=== PATIENT | male | born 1975 | race Caucasian/White ===

== ENCOUNTER 2020-09-03 23:04 | Observation (INO) ==
[2020-09-04] MEDS ORDERED: THIAMINE INJ 100 MG, FOLIC ACID INJ 1 MG, MAGNESIUM SULF INJ 2 GM, MULTIVITAMIN INJ 10 ... IV ONE (00:13)
[2020-09-04] MEDS ORDERED: LORazepam 2 MG/1 ML VIAL IV STA ×2 (00:13→02:50)
[2020-09-04] MEDS ORDERED: ONDANSETRON 4 MG/2 ML VIAL IV ONE (00:14)
[2020-09-04 00:35] LABS: Albumin 5.3 G/DL (3.4-5.0); Bilirubin,Total 1.4 MG/DL (0.20-1.00); Calcium 10.1 MG/DL (8.5-10.1); Osmolality,Calculated 273.1 MOS/KG (273-304); Potassium 4.1 MMOL/L (3.5-5.1); Total Protein 9.5 G/DL (6.4-8.2)
[2020-09-04 00:40] LABS: Basophils # 0.1 10*3/uL (0.0-0.2); Basophils % 0.5 % (0.0-0.8); Eosinophils % 0.1 % (0.00-10.9); Hematocrit 51.7 VOL% (42.0-52.0); Hemoglobin 17.7 GM/DL (14.0-18.0); Immature Granulocytes % 0.5 %; Immature Granulocytes Absolute 0.07 #; Lymphocytes # 1.9 10*3/uL (1.4-4.0); Lymphocytes % 12.1 % (21.2-54.2); Mean Corpuscular HGB Conc 34.2 GM/DL (32-36); Mean Corpuscular Volume 93.3 FL (87-102); Mean Platelet Volume 10.7 FL (9.6-12.0); Monocytes % 4.9 % (1.7-12.7); Neutrophils % 81.9 % (38.7-73.9); Platelet Count 223 T/CUMM (130-400); Red Blood Count 5.54 MC/CUMM (3.8-5.5); White Blood Count 15.3 T/CUMM (4-12)
[2020-09-04 00:47] LABS: Blood, Urine Small mg/dL (Negative); Glucose,Urine (UA) 50 mg/dL (Negative); Hyaline Casts,Urine 17 /LPF (0-3); Ketones,Urine 80 mg/dL (Negative); Mucus,Urine Moderate /LPF (Occasional); Nitrite,Urine Negative (Negative); Protein,Urine >=500 MG/DL; RBC,Urine 2 /HPF (0-4); Squamous Epithelial Cell,Urine Occasional /HPF (0-10); Urine Appearance CLEAR (Clear); Urine Specific Gravity 1.031 (1.001-1.035); Urine Urobilinogen < 2.0 EU/DL (0.2-1.0)
[2020-09-04 00:48] LABS: Bilirubin,Urine Small mg/dL (Negative); Urine Color Yellow (Yellow)
[2020-09-04 00:49] LABS: Barbiturates Screen,Urine Negative (Negative); Benzodiazepines Screen,Urine Negative (Negative); Cannabinoid Screen,Urine Negative (Negative); Opiate Screen,Urine Negative (Negative); Phencyclidine Screen,Urine Negative (Negative)
[2020-09-04] MEDS ORDERED: hydrALAZINE 20 MG/1 ML VIAL IV STA (01:52)
[2020-09-04] MEDS ORDERED: LABETALOL 20 MG/4 ML SYRINGE IV STA ×2 (02:50→03:21)
[2020-09-04] MEDS ORDERED: hydrALAZINE 20 MG/1 ML VIAL IV PRN (03:21)
[2020-09-04] MEDS ORDERED: DEXTROSE 50% 25 GM/50 ML VIAL IV PRN (03:21)
[2020-09-04] MEDS ORDERED: PROMETHAZINE 25 MG/1 ML VIAL IM PRN (03:21)
[2020-09-04] MEDS ORDERED: GLUCAGON 1 MG VIAL IM PRN (03:21)
[2020-09-04] MEDS ORDERED: diphenhydrAMINE CAP 25 MG CAPSULE PO PRN (03:21)
[2020-09-04] MEDS ORDERED: ONDANSETRON 4 MG/2 ML VIAL IV PRN (03:21)
[2020-09-04] MEDS ORDERED: NICOTINE 21 MG/24 HR PATCH TRANSDERM PRN (03:21)
[2020-09-04] MEDS: LORazepam 2 MG/1 ML VIAL IV PRN ×4 (05:57→20:38)
[2020-09-04] MEDS: SODIUM CHLORIDE 0.9% 1,000 ML IV SCH ×4 (06:03→20:39)
[2020-09-04 08:57] LABS: Albumin 4.1 G/DL (3.4-5.0); Bilirubin,Total 1.3 MG/DL (0.20-1.00); Calcium 8.4 MG/DL (8.5-10.1); Osmolality,Calculated 269.1 MOS/KG (273-304); Potassium 3.5 MMOL/L (3.5-5.1); Total Protein 7.8 G/DL (6.4-8.2)
[2020-09-04] MEDS: chlordiazePOXIDE 10 MG CAPSULE PO SCH (20:39)
[2020-09-05] MEDS: LORazepam 2 MG/1 ML VIAL IV PRN ×6 (00:11→20:46)
[2020-09-05] MEDS: SODIUM CHLORIDE 0.9% 1,000 ML IV SCH ×3 (04:50→21:08)
[2020-09-05 05:49] LABS: Basophils # 0.1 10*3/uL (0.0-0.2); Basophils % 0.5 % (0.0-0.8); Eosinophils # 0.1 10*3/uL (0.0-0.87); Eosinophils % 1.5 % (0.00-10.9); Hematocrit 40.5 VOL% (42.0-52.0); Immature Granulocytes % 0.2 %; Immature Granulocytes Absolute 0.02 #; Lymphocytes # 2.9 10*3/uL (1.4-4.0); Mean Corpuscular HGB Conc 34.6 GM/DL (32-36); Mean Corpuscular Volume 93.1 FL (87-102); Mean Platelet Volume 10.8 FL (9.6-12.0); Monocytes % 8.3 % (1.7-12.7); Neutrophils % 57.5 % (38.7-73.9); Red Cell Distribution Width 13.2 % (9.3-17.3)
[2020-09-05 05:51] LABS: Red Blood Count 4.35 MC/CUMM (3.8-5.5); White Blood Count 9.2 T/CUMM (4-12)
[2020-09-05 05:53] LABS: Platelet Count 113 T/CUMM (130-400)
[2020-09-05 06:13] LABS: Microcytosis 1+
[2020-09-05 06:14] LABS: Platelet Estimate Decreased
[2020-09-05] MEDS: chlordiazePOXIDE 10 MG CAPSULE PO SCH ×3 (08:44→20:45)
[2020-09-05] MEDS ORDERED: THIAMINE 100 MG TABLET PO SCH (09:00)
[2020-09-05] MEDS ORDERED: MULTIVITAMIN (BEROCCA) TABLET PO SCH (13:30)
[2020-09-05] MEDS: QUEtiapine 25 MG TABLET PO SCH ×2 (13:37→20:44)
[2020-09-05] MEDS ORDERED: traZODone 50 MG TABLET PO SCH (21:00)
[2020-09-06] MEDS: SODIUM CHLORIDE 0.9% 1,000 ML IV SCH ×2 (02:31→06:00)
[2020-09-06 03:42] VITALS: BP 132/70
[2020-09-06 05:54] LABS: Basophils # 0.1 10*3/uL (0.0-0.2); Eosinophils # 0.3 10*3/uL (0.0-0.87); Eosinophils % 3.9 % (0.00-10.9); Hemoglobin 13.4 GM/DL (14.0-18.0); Immature Granulocytes % 0.3 %; Immature Granulocytes Absolute 0.02 #; Lymphocytes # 2.7 10*3/uL (1.4-4.0); Lymphocytes % 38.1 % (21.2-54.2); Mean Corpuscular HGB Conc 34.4 GM/DL (32-36); Mean Corpuscular Volume 94.9 FL (87-102); Mean Platelet Volume 10.8 FL (9.6-12.0); Neutrophils % 49.7 % (38.7-73.9); Platelet Count 108 T/CUMM (130-400); Red Blood Count 4.11 MC/CUMM (3.8-5.5); Red Cell Distribution Width 13.1 % (9.3-17.3); White Blood Count 7.1 T/CUMM (4-12)
[2020-09-06 06:08] LABS: Calcium 8.6 MG/DL (8.5-10.1); Osmolality,Calculated 279.1 MOS/KG (273-304); Potassium 3.4 MMOL/L (3.5-5.1)
[2020-09-06 06:13] LABS: Hypochromasia Slight; Microcytosis Slight; Platelet Estimate Decreased
== END 2020-09-06 07:27 | disposition left against medical advice (07) ==
LOC: N.ED 23:04 → N.EDINP 23:04 → SUATTDRO 09-04 03:21 → N.TELEN 09-04 04:22
PROVIDERS: ADMIT Emergency Medicine; ATTEND Hospitalist